=== PATIENT | male | born 1965 | race Caucasian/White ===

== ENCOUNTER 2019-05-23 14:10 | Emergency (ER) | payer MEDICAID ==
[~2019-05-23] VITALS: Ht 180.3 cm; Wt 79.5 kg
[2019-05-23 14:17] VITALS: Ht 180.3 cm; Wt 79.5 kg
--- NOTE | 2019-05-23 15:39 | NUR ---
DR HANSEN NOTIFIED AND REVIEWED PT'S BEHAVIOR AND ASSESSMENT RESULTS. PT IS A LOW RISK PER DR HANSEN. DR HANSEN STATED TO GIVE RESOURCES TO PT AT TIME OF DISCHARGE. NO FURTHER ORDERS AT THIS TIME. RESOURCES REVIEWED WITH PT AND HE VERBALIZED UNDERSTANDING. PT VEHEMENTLY DENIES ANY THOUGHTS OF SUICIDE.
[2019-05-23] MEDS ORDERED: BACLOFEN20 M1 PO (15:42)
[2019-05-23] MEDS ORDERED: VOLTAREN75 MG PO (15:42)
[2019-05-23 16:16] VITALS: BP 169/99
== END 2019-05-23 16:16 | disposition home or self-care (01) ==
LOC: D.ER 14:10
DX: S20.212A Contusion of left front wall of thorax, initial encounter (principal); W19.XXXA Unspecified fall, initial encounter; R07.89 Other chest pain; F17.210 Nicotine dependence, cigarettes, uncomplicated

== ENCOUNTER 2019-05-24 13:04 | Emergency (ER) | payer MEDICAID ==
[~2019-05-24] VITALS: Ht 180.3 cm; Wt 79.5 kg
[~2019-05-24 13:04] MED LIST: BACLOFEN20 M1 PO; VOLTAREN75 MG PO
[2019-05-24 13:07] VITALS: Ht 180.3 cm; Wt 79.5 kg
[2019-05-24 14:03] LABS: BASOPHILS 0 % (0-2); EOSINOPHILS 0 % (0-7); HEMATOCRIT 42.4 % (42.0-54.0); HEMOGLOBIN 14.2 g/dL (13.5-17.5); IMMATURE GRANULOCYTES 0.3 % (0-5); LYMPHOCYTES 3.7 % (15-50); MCH 34.5 pg (26.0-34.0); MCHC 33.5 g/dL (31.0-37.0); MCV 102.9 fL (80.0-100.0); MEAN PLATELET VOLUME 10.1 fL (7.4-10.4); MONOCYTES 7.1 % (2-11); NEUTROPHILS 88.9 % (40-80); PLATELET COUNT 196 10x3/uL (130-400); RBC 4.12 10x6/uL (4.20-6.10); RDW 15.3 % (11.5-14.5); WBC 11.9 10x3/uL (4.8-10.8)
[2019-05-24 14:16] LABS: APTT 37.3 SECONDS (22.8-39.4); INR 1.19 (0.85-1.17); PROTIME 14.6 SECONDS (11.6-15.0)
[2019-05-24 14:17] LABS: ALBUMIN 4.2 g/dL (3.4-5.0); ALKALINE PHOSPHATASE 126 U/L (46-116); ALT (SGPT) 80 U/L (10-68); BILIRUBIN - TOTAL 1.65 mg/dL (0.2-1.3); CALC OSMOLALITY 294 mosm/kg (275-300); CALCIUM 9.2 mg/dL (8.5-10.1); CARBON DIOXIDE 26.3 mmol/L (21.0-32.0); CHLORIDE - SERUM 105 mmol/L (98-107); CREATININE - SERUM 1.5 mg/dL (0.6-1.3); GLUCOSE 137 mg/dL (74-106); POTASSIUM - SERUM 3.9 mmol/L (3.5-5.1); PROTEIN - SERUM 7.9 g/dL (6.4-8.2); SODIUM 144 mmol/L (136-145); UREA NITROGEN 29 mg/dL (7-18); eGFR NON AFRICAN AMERICAN 52 mL/min (90-120)
[2019-05-24 14:23] LABS: COLOR DK YELLOW (YELLOW)
[2019-05-24 14:24] LABS: AMORPHOUS SEDIMENT >1+ /lpf (NONE SEEN); APPEARANCE CLOUDY (CLEAR); BACTERIA FEW /hpf (NEGATIVE); BILIRUBIN 2+ (NEGATIVE); EPITHELIAL CELLS 0-5 /hpf (0-5); GLUCOSE NEGATIVE (NEGATIVE); GRANULAR CAST 0-5 /lpf (NONE SEEN); KETONE MODERATE mg/dL (NEGATIVE); NITRITE NEGATIVE (NEGATIVE); PROTEIN 1+ mg/dL (NEGATIVE); UROBILINOGEN NORMAL (NORMAL); WHITE CELLS - URINE 0-5 /hpf (NEGATIVE)
[2019-05-24 14:26] LABS: UDS - AMPHET NEGATIVE QUAL (NEGATIVE); UDS - BARB NEGATIVE QUAL (NEGATIVE); UDS - BENZO NEGATIVE QUAL (NEGATIVE); UDS - COCAINE NEGATIVE QUAL (NEGATIVE); UDS - OPIATE NEGATIVE QUAL (NEGATIVE); UDS - PCP NEGATIVE QUAL (NEGATIVE); UDS - THC POSITIVE QUAL (NEGATIVE)
[2019-05-24 14:36] LABS: CKMB 15.6 U/L (0.0-3.6); CREATINE KINASE 1560 UL (21-232); MAGNESIUM - SERUM 2.3 mg/dL (1.8-2.4); THYROID STIMULATING HORMONE 0.93 uIU/mL (0.36-3.74)
[2019-05-24 14:38] LABS: TROPONIN-I 1.088 ng/mL (0.000-0.060)
[2019-05-24 17:38] VITALS: BP 180/104
== END 2019-05-24 17:40 | disposition other institution (70) ==
LOC: D.ER 13:04
PROVIDERS: Family Medicine
DX: R07.89 Other chest pain (principal); X58.XXXA Exposure to other specified factors, initial encounter